=== PATIENT | female | born 1945 | race Caucasian/White ===

== ENCOUNTER 2019-06-07 06:02 | Inpatient (IN) | payer OTHER ==
[2019-05-26 12:17] LABS: URINE BILIRUBIN NEGATIVE (Negative); URINE BLOOD NEGATIVE (Negative); URINE CLARITY CLEAR; URINE COLOR YELLOW; URINE GLUCOSE-RANDOM* NEGATIVE (Negative); URINE KETONES NEGATIVE (Negative); URINE LEUKOCYTES-REFLEX NEGATIVE (Negative); URINE NITRITE-REFLEX NEGATIVE (Negative); URINE PROTEIN (DIPSTICK) NEGATIVE (Negative); URINE UROBILINOGEN 0.2 E.U./dl (0.2-1.0)
[2019-05-26 12:20] LABS: HEMATOCRIT 41.3 % (37.0-47.0); HEMOGLOBIN 14.4 gm/dL (12.0-15.0); MCH 31.5 pg (26.0-34.0); MCHC 34.9 g/dL (28.0-37.0); MCV 90.4 fL (80.0-100.0); RBC 4.57 mil/uL (4.20-5.00); RDW 12.7 % (10.5-14.5); WBC 7.8 thou/uL (4.0-11.0)
[2019-05-26 12:25] LABS: ALBUMIN 3.6 g/dL (3.4-5.0); CALCIUM 8.9 mg/dL (8.5-10.1); POTASSIUM 4.3 mmol/L (3.5-5.1)
[2019-05-26 12:34] LABS: PROTIME 10.1 Seconds (9.3-11.4)
[2019-05-26 23:08] LABS: GLYCOHEMOGLOBIN (HGB A1C) 6.1 % (4.8-5.6)
--- NOTE | 2019-05-27 09:37 | EKG ---
[address] [place] [address] ELECTROCARDIOGRAM REPORT Name: EMILY DAVENPORT V Room #: [facility]#: [id number] Admission: Attend Phys: Sergey White MD Discharge: Date of : 45 Report #: [id number] THIS REPORT FOR: //name// [facility] Test Date: 2019-05-26 Test Time: 12:12:53 Pat Name: EMILY DAVENPORT Department: Room: Gender: F Manager Payroll: SHAILESH TADEO : 1945 Requested By: Sergey White Order Number: [id number] MD: Frank Prieto Measurements Intervals [place] Rate: 70 P: 32 WI: 151 QRS: 11 QRSD: 91 T: -21 QT: 422 QTc: 456 Interpretive Statements Sinus rhythm Nonspecific ST and T wave abnormality Compared to ECG 05/06/2016 12:07:17 Sinus tachycardia no longer present Atrial premature complex(es) no longer present Nonspecific change in the ST and T-wave segments Electronically Signed On 05-27-2019 9:36:54 CDT by Frank Prieto [email or web address] <ELECTRONICALLY SIGNED> By: Frank Prieto MD, FACC 05/27/19 0936 1212 1212 Frank Prieto MD, [facility] /EPI
[~2019-06-07] VITALS: Ht 157.5 cm; Wt 68.9 kg
[~2019-06-07 06:02] MED LIST: ASPIR 8181 MG PO; CELEBREX 200 M200 M1 PO; COLACE 100 MG100 MG PO; COZAAR 50 MG TA50 M2 PO; DICLOFENAC SODI75 MG PO; ENOXAPARIN40 MG/0.1 SUBQ; GLUCOPHAGE XR500 MG PO; HYDROCODONE-AP1 EAC6 PO; HYDROCODONE-APA1 TA1 PO; LEXAPRO20 MG PO; LIPITOR10 MG PO; MIRALAX255 GM PO; NEURONTIN 300300 M1 PO; NOLVADEX20 MG PO; PROTONIX40 M1 PO; SENOKOT-S1 TA1 PO; SYNTHROID50 MCG PO; VITAMIN D-32000 UNIT PO; XANAX 0.5 MG0.5 MG PO
[2019-06-10] MEDS ORDERED: CEFUROXIME250 MG PO (15:15)
[2019-06-10] MEDS ORDERED: COZAAR100 MG PO (15:21)
[2019-06-16 09:03] LABS: URINE BILIRUBIN NEGATIVE (Negative); URINE BLOOD TRACE (Negative); URINE CLARITY CLEAR; URINE COLOR YELLOW; URINE GLUCOSE-RANDOM* NEGATIVE (Negative); URINE KETONES NEGATIVE (Negative); URINE LEUKOCYTES-REFLEX 1+ (Negative); URINE NITRITE-REFLEX NEGATIVE (Negative); URINE PROTEIN (DIPSTICK) NEGATIVE (Negative); URINE UROBILINOGEN 0.2 E.U./dl (0.2-1.0)
[2019-06-16 09:06] LABS: HEMATOCRIT 41.4 % (37.0-47.0); HEMOGLOBIN 14.4 gm/dL (12.0-15.0); MCH 31.3 pg (26.0-34.0); MCHC 34.7 g/dL (28.0-37.0); MCV 90.2 fL (80.0-100.0); RBC 4.59 mil/uL (4.20-5.00); RDW 12.6 % (10.5-14.5); WBC 8.1 thou/uL (4.0-11.0)
[2019-06-16 09:13] LABS: BACTERIA-REFLEX 1-9 Few /HPF (None Seen); CASTS None Seen /LPF (None Seen); CRYSTALS None Seen /LPF (None Seen); SQUAMOUS 4-10 Moderate /LPF (0-3); URINE RBC 0-2 Rare /HPF (0-2); URINE WBC-REFLEX 0-5 Rare /HPF (0-5)
[2019-06-16 09:15] LABS: ALBUMIN 3.3 g/dL (3.4-5.0); CALCIUM 9.8 mg/dL (8.5-10.1); POTASSIUM 4.3 mmol/L (3.5-5.1)
[2019-06-16 09:16] LABS: PROTIME 10.1 Seconds (9.3-11.4)
[2019-06-28] VITALS (14 sets, daily range): BP systolic 121–182; BP diastolic 71–95
--- NOTE | 2019-06-28 09:04 | H ---
[facility] [place] [address] HISTORY AND PHYSICAL Name: EMILY DAVENPORT V Room #: 150-1 ADM IN M.R.#: [id number] Admission: 06/28/19 Attend Phys: Sergey White MD Discharge: Date of : 45 Report #: [id number] THIS REPORT FOR: //name// CC: French White DATE OF SERVICE: 06/28/2019 CHIEF COMPLAINT: End-stage degenerative arthritis, right knee. HISTORY OF PRESENT ILLNESS: This 74-year-old female has progressive degenerative osteoarthritis involving multiple joints. She underwent left total knee replacement in the past with good result. She has decided to go ahead with right total knee replacement at this time. This was scheduled for about 1 month ago, but delayed as she had a mild upper respiratory tract infection. Recently, she has also had mild urinary tract infection, which has been treated with antibiotics and seems to be clearing. She is otherwise generally healthy, but rather frail and anxious. She has progressive right knee pain with mild varus malalignment and some limited range of motion. She has not seen much improvement with medications or multiple joint injections. The patient and family understand treatment options well and have decided to go ahead with right total knee arthroplasty. Her general medical history is also pertinent for mild hypertension, depression, anxiety and well-controlled diabetes. PREVIOUS MEDICAL HISTORY: Notable for anxiety and depression, arthritis, hypertension and mild diabetes. MEDICATIONS: Include metformin 500 mg daily, aspirin 81 mg daily, atorvastatin 10 mg daily, losartan 100 mg daily. MEDICAL ALLERGIES: None. TOBACCO: None. ALCOHOL: Minimal. FAMILY HISTORY: Noncontributory. REVIEW OF SYSTEMS: Negative for recent chest pain, shortness of breath, nausea, vomiting or any other significant constitutional complaints. She notes her previous upper respiratory tract problem has resolved. She notes she does have a history of mild intermittent bladder cystitis and is having mild bladder irritability at this point. PHYSICAL EXAMINATION: GENERAL: She is alert and oriented, but somewhat anxious. She complains [facility] [address] [email or web address] [address] HISTORY AND PHYSICAL Name: EMILY DAVENPORT V Room #: [address] [place] [address] [place] [facility].#: [id number] Admission: 06/28/19 Attend Phys: Sergey White MD Discharge: Date of : 45 Report #: [id number] principally of right knee pain with pain on ambulation and movement. She is mildly heavy and deconditioned. She walks with an obvious antalgic gait pattern on the right side related to knee pain and mild varus malalignment. She uses a cane intermittently today. LUNGS: Clear. CARDIOVASCULAR: Reveals a regular rate and rhythm without significant murmurs. ABDOMEN: Soft and nontender. EXTREMITIES: The neck and back reveal satisfactory alignment and range of motion with only mild discomfort. The upper extremities reveal good movement of the shoulder, elbow, wrist and hand without significant discomfort. The left lower extremity reveals good alignment of a previous total knee replacement, which seems to be functioning well with good range of motion and stability. The right knee demonstrates slight varus malalignment with significant joint crepitus and pain on range of motion. Symptoms are most pronounced at the patella and the medial joint line. She lacks a few degrees from full knee extension. Distal neurologic and vascular status appeared to be intact. IMAGING: X-rays of the right knee reveal rather severe end-stage degenerative osteoarthritis with involvement of all three compartments. There is mild varus malalignment with significant medial compartment collapse and spurring in all 3 compartments. IMPRESSION: End-stage degenerative osteoarthritis, right knee. I have discussed this with the patient and her family on several occasions. They understand well and wished to proceed with right total knee arthroplasty. We have discussed that her surgery was previously postponed as a result of a mild upper respiratory tract infection. This seems to be resolved and she has been cleared by her primary care physician. She has had recently a mild urinary tract infection with sensitive organism, which has been treated with oral antibiotics and seems to be clearing as she is not particularly symptomatic at this point. She continues on medications for depression and anxiety, which may represent some problems with her rehabilitation. Family feel they can manage at home with these issues and may wish to have some visiting therapy, but did not anticipate the need for an extended care facility. We will plan to proceed with right total knee arthroplasty today on 06/28/2019. <ELECTRONICALLY SIGNED> By: Sergey White MD 06/28/19 0904 0745 0810 Sergey White MD /nt
--- NOTE | 2019-06-28 10:28 | O ---
[facility] [place] [address] OPERATIVE REPORT Name: EMILY DAVENPORT V Room #: 150-1 ADM IN M.R.#: [id number] Admission: 06/28/19 Attend Phys: Sergey White MD Discharge: Date of : 45 Report #: [id number] THIS REPORT FOR: //name// CC: French Tristian hWite DATE OF SERVICE: 06/28/2019 PREOPERATIVE DIAGNOSIS: End-stage degenerative osteoarthritis, right knee. POSTOPERATIVE DIAGNOSIS: End-stage degenerative osteoarthritis, right knee. PROCEDURE: Right total knee arthroplasty. SURGEON: Sergey White MD INDICATIONS: This 74-year-old female is rather frail and anxious. She has chronic problems with degenerative osteoarthritis. She underwent left total knee replacement in the past with good result. She returns now for right total knee replacement. DESCRIPTION OF PROCEDURE: The patient was taken to the operating room where she was placed under general anesthesia. A femoral nerve block was also applied on the right side. The right knee and leg were then meticulously prepped and draped. A tourniquet was applied and inflated to 300 mmHg. An anterior longitudinal skin incision was made. This was carried through the medial retinaculum exposing the joint. Marked degenerative change in all 3 compartments was noted. The Peterson and Nephew knee system was utilized. Intramedullary guides were used on both the femur and the tibia. The femur was cut in 5 degrees of valgus and the femur seemed to be best suited for a size 3 femoral component. Good exposure on the tibial side was established and the tibia was cut perpendicular to the long axis of the bone. The tibia also seemed best suited for a size 3 tibial component. A trial reduction was performed and a 10 mm polyethylene insert resulted in good alignment, range of motion and stability. There was good correction in the preoperative varus malalignment and mild flexion contracture. The patellar surface was resected and a 32 mm patellar button was tried and fit nicely. The patella seemed to track well and appeared to be stable. The trial components were removed. The bony surfaces were thoroughly irrigated and dried. The intramedullary canal was blocked with a bone block on both the femoral and tibial sides. Methyl methacrylate cement was mixed and injected into the porous surface of the proximal tibia. The Peterson and Nephew size 3 Sangeeta II tibial baseplate was then applied. This was impacted into position and seated nicely and appeared to be secure. The excess cement was removed around its margin. A size 10 mm Legion cruciate retaining high flexion [address] [address] OPERATIVE REPORT Name: EMILY DAVENPORT V Room #: 150-1 [facility] [place] ..#: [id number] Admission: 06/28/19 Attend Phys: Sergey White MD Discharge: Date of : 45 Report #: [id number] polyethylene insert was applied. This was snapped into position and seated nicely and appeared to be secure. A right size 3 cruciate retaining Legion femoral component was then applied. Methyl methacrylate cement was also used as the distal femoral bone is somewhat soft and osteopenic. This component also seated nicely and appeared to be secure. Excess cement was removed from around its margin. The 32 mm Sangeeta II patellar resurfacing button was applied with appropriate anchor holes and cement. It was secured with a patellar clamp until the cement had hardened. All excess cement was removed from around its margin. Once the cement was firm, range of motion, alignment, and stability were assessed and felt to be satisfactory. The patellar tracks nicely. The knee is in good alignment and demonstrated full knee extension and flexion beyond 135 degrees. The patella is stable. The wound was copiously irrigated. The tourniquet was deflated and good hemostasis was confirmed. A single Hemovac was left in the wound exiting through a separate stab incision. The fascia was then closed with multiple #1 Vicryl sutures. The subcutaneous tissues were closed with 0 Monocryl. The skin was closed with skin lilliam. A sterile dressing was applied. The patient was awakened and returned to recovery room in good condition. <ELECTRONICALLY SIGNED> By: Sergey White MD 06/28/19 1028 0902 0918 Sergey White MD /nt
--- NOTE | 2019-06-28 11:59 | NUR ---
PT ARRIVED FROM PACU TO ROOM 427 VIA BED AT 10:40. ADMISSION ASSESSMENT COMPLETED. A&O,X4. C/O RIGHT KNEE PAIN 2/10 S/P RIGHT TKA, NO PAIN MEDS REQUESTED AT THIS TIME. DENIES NAUSEA. ON CLEARS DIETS, ICE WATER PROVIDED. RIGHT KAREN DRESSING, SARA WRAP, AND ICE IN PLACE. +2/+2 PULSES. VSS. AND DAUGHTER AT BEDSIDE. VOIDED ON BEDPAN. WILL CONTINUE TO MONITOR.
--- NOTE | 2019-06-28 15:22 | NUR ---
INITIAL ASSESSMENT: Pt evaluated for d/c planning needs. Reviewed chart and spoke with nurse, pt and spouse. Pt is alert and oriented. Pt lives in house with spouse and was independent with ADL's prior to admission. Pt had first knee replacement surgery done in 2016 and returned home with [facility] home health, and then transitioned to outpatient physical therapy. Pt has walker and cane at home. Pt plans on returning home on d/c from hospital. Pt wants to use [facility] again and then transition to outpatient physical therapy. Referral sent to [facility]. Will remain available to assist as needed.
[2019-06-29 03:46] VITALS: BP 139/93
--- NOTE | 2019-06-29 04:48 | NUR ---
PATIENT ALERT AND ORIENTED X4. C/O PAIN, MED GIVEN. DRESSING ON R KNEE D/I. ICE APPLIED. USES BEDPAN. PASSING FLATUS. ACCUCHECK WAS 194. SHE REFUSED TO TAKE HER INSULIN. SAYS SHE TAKES METFORMIN AND DOES NOT WANT THE INSULIN. SLEPT MOST OF NIGHT.
[2019-06-29 05:31] LABS: HEMATOCRIT 32.9 % (37.0-47.0); HEMOGLOBIN 11.3 gm/dL (12.0-15.0); MCH 30.9 pg (26.0-34.0); MCHC 34.3 g/dL (28.0-37.0); MCV 90.3 fL (80.0-100.0); RBC 3.65 mil/uL (4.20-5.00); RDW 12.9 % (10.5-14.5); WBC 12.2 thou/uL (4.0-11.0)
[2019-06-29 08:22] VITALS: BP 147/83
--- NOTE | 2019-06-29 12:13 | NUR ---
PT A&OX4, IV INTACT IN R HAND. UP WITH PT AND WALKER THIS AM, PT DID HAVE N/V WHEN PT WAS WORKING WITH HER. ZOFRAN IV GIVEN. KAREN LAURENT TO R KNEE C/D/I HEMOVAC REMOVED THIS AM. SPOUSE AT BEDSIDE. WILL CONT POC.
[2019-06-29 17:18] VITALS: BP 138/66
[2019-06-30 04:08] VITALS: BP 154/74
--- NOTE | 2019-06-30 05:43 | NUR ---
ASSUMED CARE OF PT @1900. PT A&OX4, WITH COMPLAIN OF PAIN IN RIGHT KNEE. PAIN MEDS GIVEN AND PARTIAL RELIEF FROM PAIN SEE EMAR. KAREN DRESSING INTACT AND POC DONE. FALL PREC IN PLACE AND WILL CONTINUE TO MONITOR TILL EOS
[2019-06-30 05:53] LABS: HEMATOCRIT 33.2 % (37.0-47.0); HEMOGLOBIN 11.4 gm/dL (12.0-15.0); MCH 31.2 pg (26.0-34.0); MCHC 34.5 g/dL (28.0-37.0); MCV 90.5 fL (80.0-100.0); RBC 3.67 mil/uL (4.20-5.00); RDW 12.9 % (10.5-14.5); WBC 13.6 thou/uL (4.0-11.0)
[2019-06-30 07:51] VITALS: BP 174/94
--- NOTE | 2019-06-30 13:30 | NUR ---
PT A&OX4, IV INTACT IN R HAND. KAREN DRSG C/D/I TO R KNEE. UP WITH PT AND WALKER THIS AM. TOLERATING PO PAIN MED WELL. WILL CONT POC.
[2019-06-30 15:12] VITALS: BP 174/94
--- NOTE | 2019-06-30 15:13 | NUR ---
[facility] alerted to likely dc to home tomorrow with HH. Pt has needed dme in place.
[2019-06-30 15:59] VITALS: BP 164/84
[2019-06-30 20:15] VITALS: BP 159/76
[2019-07-01 04:15] VITALS: BP 118/80
[2019-07-01 04:59] LABS: HEMATOCRIT 34.9 % (37.0-47.0); HEMOGLOBIN 12.1 gm/dL (12.0-15.0); MCH 31.3 pg (26.0-34.0); MCHC 34.7 g/dL (28.0-37.0); MCV 90.5 fL (80.0-100.0); RBC 3.86 mil/uL (4.20-5.00); RDW 12.5 % (10.5-14.5); WBC 13.7 thou/uL (4.0-11.0)
--- NOTE | 2019-07-01 07:18 | NUR ---
A/O, calm and pleasant; compained of pain in surgical site, pain medication given and worked; no n/v; afebrile; bed rest,SCD on.
[2019-07-01 07:45] VITALS: BP 118/68
--- NOTE | 2019-07-01 08:09 | NUR ---
ASSESMENT COMPLETED. PAIN MANAGED BY MEDS ORDERED. NO NOTED SOA. NO NV. KAREN DRESSING WITH DRIED DRAINAGE. UP WITH STAND BY. ANTICIPAING DC HOME OAY. PT UP IN [facility] AT THIS TIME. WILL CON. TO MONITOR.
[2019-07-01 10:15] VITALS: BP 174/94
[2019-07-01 10:39] VITALS: BP 174/94
--- NOTE | 2019-07-01 10:42 | NUR ---
Received d/c order from physician. Notified [facility]. Spoke with pt and spouse again. Both are in agreement with [facility] referral. Patient choice letter signed and placed on chart. No other needs identified.
[2019-07-01 13:09] VITALS: BP 174/94
--- NOTE | 2019-07-01 13:16 | NUR ---
DC INSTRUCTIONS GIVEN TO PT AND BOTH VERBALIZED UNDERSTANDING. SCRIPT FOR HYDROCODONE AND XERALTO GIVEN. IV DCD. PT TO DC HOME WITH HH.
--- NOTE | 2019-07-01 17:36 | D ---
[facility] [place] [address] DISCHARGE SUMMARY Name: EMILY DAVENPORT V Room #: 427-P [facility] IN M.R.#: [id number] Admission: 06/28/19 Attend Phys: Sergey White MD Discharge: 07/01/19 Date of : 45 Report #: [id number] THIS REPORT FOR: //name// CC: French White DATE OF SERVICE: 07/01/2019 FINAL DIAGNOSIS: End-stage degenerative osteoarthritis, right knee. OTHER DIAGNOSES: Type 2 diabetes, hypertension. OPERATIVE PROCEDURES: Right total knee arthroplasty. HISTORY OF PRESENT ILLNESS: This frail and somewhat anxious 74-year-old female presents with progressive right knee pain. She has obvious degenerative osteoarthritis and has similar issues on the opposite side. She underwent previous left total knee replacement with good result. She is admitted at this time for right total knee replacement. HOSPITAL COURSE: The patient was admitted and taken to the operating room on 06/28/2019. She underwent a right total knee replacement, which she tolerated well. Postoperatively, she made slow progress, advancing from IV analgesics to oral analgesics and was able to resume her regular diabetic diet. She was able to resume her routine medications. She was placed on Xarelto for DVT prophylaxis. The knee dressing appears to be clean and dry. She has had minimal drainage. Her hemoglobin and other lab studies have remained satisfactory. She has made good progress with physical therapy and has been discharged today noting she is safe and independent and able to manage a few steps. DISCHARGE MEDICATIONS: Include vitamin D 2000 units daily, atorvastatin 10 mg daily, Synthroid 50 mcg daily, Nolvadex 20 mg daily, Lexapro 20 mg daily, metformin 500 mg daily, aspirin 81 mg daily, Cozaar 100 mg daily, Xarelto 10 mg daily, hydrocodone 5-10 mg every 6 hours as needed for pain. She will continue with a gentle independent exercise program and will also be assisted by visiting home therapy over the next 2 weeks. She will resume her diabetic diet. I have asked her to call me, should there be any problems or questions. We will plan to see her back in my office in 1 week for routine followup in 2 weeks for suture removal. <ELECTRONICALLY SIGNED> By: Sergey White MD 07/01/19 1736 1030 1036 Sergey White MD /nt
== END 2019-07-01 13:23 | disposition home health service (06) | DRG 470 ==
LOC: PRE 06:02 → 4E 06-28 05:14 → TBA 06-28 05:14 → PRE 06-28 05:33 → 4E 06-28 10:42 → PRE 06-28 11:01 → ENTRNSPT 07-01 13:09 → EDTRNSPTSTS 07-01 13:13 → 4E 07-01 13:23
PROVIDERS: ADMIT Orthopaedic Surgery
PROC: 0SRC0J9 Replacement of Right Knee Joint with Synthetic Substitute, Cemented, Open Approach (ICD-10-PCS; principal; 2019-06-28)
DX: M17.11 Unilateral primary osteoarthritis, right knee (principal); I10 Essential (primary) hypertension; E11.9 Type 2 diabetes mellitus without complications; F41.9 Anxiety disorder, unspecified; E78.5 Hyperlipidemia, unspecified; F32.9 Major depressive disorder, single episode, unspecified; E03.9 Hypothyroidism, unspecified; Z85.3 Personal history of malignant neoplasm of breast; Z79.82 Long term (current) use of aspirin; Z79.899 Other long term (current) drug therapy
CPT/HCPCS: 10783; 50010; 50101; 50415; 50954; 51130; 51225; 51412; 53364; 56525; 57095; 57104; 57180; 62110; 62900; 65060; 70005